=== PATIENT | male | born 1950 | race Asian ===

== ENCOUNTER → 2017-09-17 | Day surgery (SDC) | payer OTHER, MEDICARE ==
[~2017-09-17] VITALS: Ht 175.3 cm; Wt 90.7 kg
--- NOTE | 2017-09-17 10:40 | Operative Report ---
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 She was consented for trabeculectomy of the right eye . The patient was brought to the operating room and standard monitoring equipment was attached. The patient was prepped and draped in the usual fashion for sterile intraocular surgery. A lid speculum was used to retract the lids. A small temporal incision was made with an I- knife and non-preserved lidocaine was introduced into the anterior chamber to provide anesthesia. The patient was asked to look down. A Vicryl suture on a cutting needle was passed intracorneally and its 2 ends were tied together with a Steri-Strip after the needle was cut off. A hemostat clamp was then used to clamp the Steri-Strip to keep the eye in a downward looking position. Conjunctiva and Tenon's tissue was opened at the 12 o'clock position using non-toothed forceps and a Vannas scissors. A fornix based conjunctival peritomy was continued using Thais's scissors. Additional anesthesia was achieved by infusing a 50:50 mixture of 2 percent lidocaine and 0.75 Marcaine which had been mixed previously underneath the conjunctiva and tenon's tissue. The sclera at the limbus was cleaned off using a 69 blade and a Weck-Bella sponge. A partial thickness groove was made tangential to the limbus approximately 1.5 mm back using the same 69 blade. A crescent knife was used to tunnel from this incision into clear cornea and then the anterior chamber was entered with a 2.4 mm keratome. Several punches of the posterior wound lip were taken with a Sarah Descemet punch. A Hernandez forceps was used to grasp the iris and a peripheral iridectomy was fashioned using the Vannas scissors. The trabeculectomy flap was sutured using 2 interrupted 10-0 nylon sutures whose knots were trimmed and buried. The flap was assessed for flow but no additional sutures were placed. The conjunctiva was reapproximated to the eye wall using 2 interrupted and 1 running 10-0 nylon sutures whose knots were trimmed and rotated underneath the tissue. The eye was pressurized to an adequate tone by introducing balanced salt solution into the anterior chamber. This caused the bleb to elevate. The bleb area was assessed for leaks and since there were none the corneal traction suture and the lid speculum was removed. The eye was patched over antibiotic, steroid and atropine drops and a combination of antibiotic and steroid ointment. The eye was then shielded. Patient was removed from the operating room in stable condition and brought to same-day surgery having tolerated the procedure well.
== END ==
LOC: STS 01:54
DX: H40.1110 Primary open-angle glaucoma, right eye, stage unspecified (principal); E11.9 Type 2 diabetes mellitus without complications; Z79.84 Long term (current) use of oral hypoglycemic drugs; I25.10 Atherosclerotic heart disease of native coronary artery without angina pectoris; G47.33 Obstructive sleep apnea (adult) (pediatric)
CPT/HCPCS: J2001; J2250